=== PATIENT | female | born 1975 | race Caucasian/White ===

== ENCOUNTER 2018-11-06 21:44 | Emergency (ER) | payer BC, OTHER ==
[~2018-11-06] VITALS: Ht 162.6 cm; Wt 93.9 kg
[2018-11-06 21:45] VITALS: BP_SYST 155
[2018-11-06] MEDS ORDERED: DIPHENHYDRAMINE HCL 25 MG CAPSULE PO ONE (22:00)
[2018-11-06] MEDS ORDERED: PREDNISONE 20 MG TABLET PO ONE (22:00)
[2018-11-06 22:24] VITALS: BP_SYST 155
== END 2018-11-06 22:24 | disposition home or self-care (01) ==
LOC: SED 21:44
DX: R09.81 Nasal congestion (principal); T36.3X5A Adverse effect of macrolides, initial encounter; R03.0 Elevated blood-pressure reading, without diagnosis of hypertension; Y92.89 Other specified places as the place of occurrence of the external cause
CPT/HCPCS: 99283; J7512; Q0163

== ENCOUNTER 2018-11-07 21:41 | Emergency (ER) | payer BC ==
[~2018-11-07] VITALS: Ht 170.2 cm; Wt 86.2 kg
[2018-11-07 21:50] VITALS: BP_SYST 143
[2018-11-07 22:30] VITALS: BP_SYST 136
== END 2018-11-07 22:30 | disposition home or self-care (01) ==
LOC: SED 21:41
DX: T78.40XA Allergy, unspecified, initial encounter (principal); R03.0 Elevated blood-pressure reading, without diagnosis of hypertension; X58.XXXA Exposure to other specified factors, initial encounter
CPT/HCPCS: 99281